=== PATIENT | male | born 1955 | race Caucasian/White ===

== ENCOUNTER 2019-03-31 09:26 | Emergency (ER) | payer MEDICARE, OTHER, SELFPAY ==
[2019-03-31 09:30] VITALS: BP 148/91; PULSE 60; RESP 18; TEMP 36.4; O2SAT 95; BMI 29.1
--- NOTE | 2019-03-31 09:31 | ED_ITS ---
Entered by Martha Dubois, acting as scribe for Elina Chatman MD Mar 31, 2019 09:26 HPI - Abdominal Pain General: Chief Complaint: Abdominal Pain Stated Complaint: Abd pain Time Seen by Provider: 03/31/19 09:32 Source: patient Mode of arrival: ambulatory Limitations: no limitations History of Present Illness: HPI narrative: 63 yo male presents with abdomen pain. pt states he was building his home when he felt a sudden pain in his abdomen. pt feels it could be gas but no relief at this time. pt denies any other symptoms at this time. MD elicited complaint: abdominal pain Onset (ago): hour(s) (1 hour ago) Pain Consistency: constant Location: Epigastric Severity: moderate Quality: cramping Radiation: none Migration to: no migration Exacerbating factors: movement Relieving factors: nothing Associated Symptoms: Denies chills, dysuria, fever(s), nausea and vomiting Review of Systems Const: Denies: fever, chills, body aches or change in appetite Eyes: Denies: blurry vision or eye discomfort ENMT: Denies: throat pain or dental pain Card: Denies: chest pain Resp: Denies: shortness of breath GI: Reports: abdominal pain; Denies: nausea or vomiting : Denies: painful urination Musc: Denies: neck pain or back pain Skin/Breast: Denies: rash Neuro: Denies: headache Psych: Denies: depression James/Lymph: Denies: easy bruising All/Imm: Denies: hives PFSH ED PFSH: Statuses (acute, chronic, etc) shown below reflect problem list status as previously entered and may not be historically accurate Social History Smoking and tobacco status: never smoked Physical Exam Const: COMMON NORMALS: no apparent distress, oriented x3 and healthy appearing HENMT: COMMON NORMALS: normocephalic and head/scalp atraumatic HEAD & SCALP: normocephalic and atraumatic Eye: COMMON NORMALS: PERRL and EOMs intact bilaterally PUPIL: Yes PERRL Neck/C-Spine: COMMON NORMALS: full ROM and supple Chest: COMMONS NORMALS: inspection of chest normal and palpation of chest normal Resp: COMMON NORMALS: normal respiratory effort, no retractions, no use of acc essory muscles and clear to auscultation bilaterally AUSCULTATION: clear to auscultation bilaterally Cardio: COMMON NORMALS: regular rate, regular rhythm and no murmurs RATE: regular rate RHYTHM: regular rhythm GI: OTHER: epigasric tenderness, no rebound Extremity: COMMON NORMALS: normal to inspection and full ROM Neuro: COMMON NORMALS: oriented x3, moves all extremities and no focal motor deficits Psych: COMMON NORMALS: mental status grossly normal, thought process normal and cooperative THOUGHT PROCESS: normal thought process Skin: COMMON NORMALS: no rashes or lesions noted and no wounds GENERAL SKIN EXAM: no rashes or lesions noted Course Vital Signs: Vital signs: Vital Signs Temperature 97.6 F 03/31/19 09:30 Pulse Rate 73 03/31/19 13:40 Respiratory Rate 16 03/31/19 13:40 Blood Pressure 168/100 03/31/19 13:40 Pulse Oximetry 97 03/31/19 13:40 MDM - Abdominal Pain MDM Narrative: Medical decision making narrative: Patient presents with abdominal pain. His pain since resolved. CT and ultrasound showed possible findings of gallbladder disease. He has no tenderness over his gallbladder here and his white count is normal. He has no signs acute cholecystitis we will set him up with a surgeon appointment next week he is return if his pain worsens or he has a fever. We will place him on Keflex along with pain medication. Lab Data: Labs: Lab Results 03/31/19 03/31/19 03/31/19 Range/Units 09:38 09:38 11:13 WBC 7.6 (4.0-10.0) 10^3/ uL RBC 5.02 (4.1-5.3) 10^6/u L Hgb 14.9 (11.7-16.6) g/dL Hct 44.2 (42.0-52.0) % MCV 88.0 (80-94) fL MCH 29.7 (28.0-34.0) pg MCHC 33.7 (30.0-36.0) g/dL RDW 12.4 (12.1-15.1) % Plt Count 182 (130-400) 10^3/c mm MPV 11.5 H (7.4-10.4) fL Neut % (Auto) 55.9 % Lymph % (Auto) 35.1 % [place] % (Auto) 6.1 % Eos % (Auto) 2.1 % Baso % (Auto) 0.5 % Neut # (Auto) 4.2 (1.8-7.7) 10^3/u L Lymph # (Auto) 2.7 (0.8-4.8) 10^3/u L [place] # (Auto) 0.5 (0.2-0.9) 10^3/u L Eos # (Auto) 0.2 (0.0-0.8) 10^3/u L Baso # (Auto) 0.0 (0.0-0.1) 10^3/u L Nucleated RBC % (a uto) 0 % Nucleated RBCs # 0.0 /100WBC Sodium 139 (136-145) mmol/L Potassium 3.9 (3.5-5.1) mmol/L Chloride 102 (98-107) mmol/L Carbon Dioxide 26 (22-29) mmol/L Anion Gap 14.9 (5-19) BUN 14 (8-23) mg/dL Creatinine 1.1 (0.7-1.2) mg/dL GFR Calculation 68.1 L (90-130) mL/min Glucose 144 H (74-106) mg/dL Calcium 9.7 (8.5-10.5) mg/dL Total Bilirubin 1.4 H (0.15-1.2) mg/dL AST 29 (0-40) U/L ALT 10 (0-41) U/L Alkaline Phosphata se 112 (40-130) IU/L Total Protein 7.2 (6.6-8.7) g/dL Albumin 4.3 (3.5-5.2) g/dL Globulin 2.9 (1.3-4.6) g/dL Lipase 17 (13-60) U/L Urine Color Straw (Yellow) Urine Appearance Clear (CLEAR) Urine pH 6.5 (5-7) Ur Specific Gravit y 1.015 (1.005-1.030) Urine Protein Neg (Negative) Urine Glucose (UA) Norm (Normal) Urine Ketones 1+ H (Negative) Urine Occult Blood Neg (Negative) Urine Nitrate Negative (Negative) Urine Bilirubin Neg (NEGATIVE) Urine Urobilinogen 1 H (Negative) mg/dL Ur Leukocyte Lizbeth ase Negative (Negative) Imaging Data ^: CT Abd/Pel: Radiologist's impression: CT Scan Report Signed Patient: Garo Arzate Unit #: [id number] : 1955 Age/Sex: 63 / M ADM Date: 03/31/19 Loc: ER Room/Bed: Attending Dr: Ordering Provider/Ordering MD: Elina Chatman MD Date of Service: 03/31/19 Procedure(s): CT abdomen pelvis w con* [id number] Accession Number(s): [id number] Report Number: [id number] PROCEDURE INFORMATION: Exam: CT Abdomen And Pelvis With Contrast Exam date and time: 03/31/2019 12:41 PM Age: 63 years old Clinical indication: Abdominal pain; Prior surgery; Surgery type: Hernia; Patient HX: Sudden onset of epigastric pain; Additional info: Abd pain TECHNIQUE: Imaging protocol: Computed tomography of the abdomen and pelvis with intravenous contrast. Total DLP: 1139.95 mGy-cm Radiation optimization: All CT scans at this facility use at least one of these dose optimization techniques: automated exposure control; mA and/or kV adjustment per patient size (includes targeted exams where dose is matched to clinical indication); or iterative reconstruction. Contrast material: OMNI 300; Contrast volume: 95 ml; Contrast route: 18G; COMPARISON: US gall bladder [id number] 03/31/2019 11:24 AM FINDINGS: Lungs: Subtle nodular density left lower lobe 3 mm X2. Consider followup CT chest. Heart: Borderline cardiomegaly Liver: Normal. No mass. Gallbladder and bile ducts: Distended gallbladder. Question subtle inflammation. Possible gallstones. Correlate with ultrasound regarding possible cholecystitis. Pancreas: Normal. No ductal dilation. Spleen: Normal. No splenomegaly. Adrenals: Normal. No mass. Kidneys and ureters: Numerous renal cysts bilaterally largest on the right of approximately 3 cm. Stomach and bowel: Diverticulosis without evidence of diverticulitis. Moderate amount stool is present throughout the large bowel. Appendix: The appendix is normal. Intraperitoneal space: No free fluid within the pelvis or within the dependent portions of the peritoneum. Vasculature: Unremarkable. No abdominal aortic aneurysm. Lymph nodes: Unremarkable. No enlarged lymph nodes. Bladder: Unremarkable as visualized. Reproductive: Prostatic enlargement. Correlate regarding hyperplasia/hypertrophy versus neoplasia. Bones/joints: Unremarkable. No acute fracture. Pars defect L5 Soft tissues: Unremarkable. CT/CT abdomen pelvis w con* [id number] IMPRESSION: 1. Distended gallbladder. Question subtle inflammation. Possible gallstones. Correlate with ultrasound regarding possible cholecystitis. 2. Prostatic enlargement. Correlate regarding hyperplasia/hypertrophy versus neoplasia. 3. No free fluid within the pelvis or within the dependent portions of the peritoneum. 4. Diverticulosis without evidence of diverticulitis. 5. The appendix is normal. 6. Subtle nodular density left lower lobe 3 mm X2. Consider followup CT chest. Fleischner Society guidelines for pulmonary nodule follow up Low risk patients < or = 4 mm: No follow-up needed. >4 - 6: Follow-up at 12 months. If no change, no further imaging needed. >6 - 8: Initial follow-up CT at 6 -12 months and then at 18 - 24 months if no change. >8: Follow-up CTs at around 3, 9, and 24 months. Dynamic contrast enhanced CT, PET, and/or biopsy. High risk patients < or = 4 mm: Follow-up at 12 months. If no change, no further imaging needed. >4-6: Initial follow-up CT at 6 -12 months and then at 18 - 24 months if no change. >6-8: Initial follow-up CT at 3 - 6 months and then at 9 -12 and 24 months if no change. >8: Follow-up CTs at around 3, 9, and 24 months. Dynamic contrast enhanced CT, PET, and/or biopsy. Note.-Newly detected indeterminate nodule in persons 35 years of age or older. Low risk patients: Minimal or absent history of smoking and of other known risk factors. High risk patients: History of smoking or of other known US: Radiologist's impression: Ordering Provider/Ordering MD: Elina Chatman MD Date of Service: 03/31/19 Procedure(s): US gall bladder [id number] Accession Number(s): [id number] Report Number: [id number] PROCEDURE INFORMATION: Exam: US Abdomen Limited, Right Upper Quadrant Exam date and time: 03/31/2019 10:50 AM Age: 63 years old Clinical indication: Abdominal pain; Additional info: Abd pain TECHNIQUE: Imaging protocol: Real-time ultrasound of the abdomen with image documentation. Examination was focused on the right upper quadrant. COMPARISON: No relevant prior studies available. FINDINGS: Liver: Liver 15 cm Flow within the portal vein is towards the liver- hepatopedal Gallbladder: Gallbladder wall upper limits of normal measuring 3 mm. Consider hepatobiliary imaging. Common bile duct: Common bile duct 4 mm right kidney 13.4 cm. Renal cysts largest of approximately 3.8 cm. Pancreas: Visualized pancreas is unremarkable. Right kidney: See Common Bile Duct Finding. Aorta: Visualized portions of the aorta non-aneurysmal and visualized portions of the inferior vena cava is unremarkable. US/US gall bladder [id number] IMPRESSION: Gallbladder wall upper limits of normal. Consider hepatobiliary imaging regarding cholecystitis. . possible sludge EKG Data ^: EKG 1: Attestation: I personally reviewed and interpreted this EKG as follows: EKG interpretation date: 03/31/19 EKG interpretation time: 09:48 Interpretation: sinus colleen hr [address] or t wave abnormalities qrs 115 qtc 415 Discharge Plan Discharge Patient Disposition: Home, Self-Care Clinical Impression: Abdominal pain Qualifiers: Abdominal location: generalized Qualified Code(s): R10.84 - Generalized abdominal pain Condition: Stable Prescriptions: New Zofran 4 mg tablet 4 mg PO QID PRN (Reason: nausea and vomiting) Qty: 14 RF: 0 [place] 5-325 mg tablet 1 tab PO Q6H PRN (Reason: pain) Qty: 14 RF: 0 Keflex 500 mg capsule 500 mg PO Q6H 7 Days Qty: 28 RF: 0 No Action lisinopril 20 mg tablet 10 mg PO BID RF: 0 tamsulosin 0.4 mg capsule 0.4 mg PO DAILY RF: 0 Discharge Orders: Discharge Order (Routine); Ordered 03/31/19 Ordered By: Elina Chatman Referrals: Bryce Small [Family Provider] - Matthew Hussein MD [Physician] - Discharge Diet: Advance as tolerated Discharge Activity: Resume usual activity Patient Instructions: Abdominal Pain (ED) Discharge Date/Time: 03/31/19 13:41 Coding Level of Care Code ED Chain Machine Operator for Chg Fwd Exam Problem Focused The documentation recorded by the Silvino dawkins Bridget Annette, accurately reflects the service I personally performed and the decisions made by Lurdes ramos Korby, MD Mar 31, 2019 09:26
--- NOTE | 2019-03-31 09:34 | ECG_ITS ---
Measurements Intervals [place] Rate: 54 P: 44 OK: 173 QRS: 22 QRSD: 115 T: 35 QT: 428 QTc: 408 SINUS BRADYCARDIA WITH OCCASIONAL VENTRICULAR PREMATURE COMPLEXES MODERATE INTRAVENTRICULAR CONDUCTION DELAY [110+ ms QRS DURATION] No previous ECG available for comparison Electronically Signed On 03-31-2019 20:25:37 COMBINATION TECHNICIAN by Radha Barnes M.D. [email or web address]
--- NOTE | 2019-03-31 09:39 | PC.NURSE ---
Patient notified of the need for a urine sample at this time, he states he cannot urinate at this time.
[2019-03-31] MEDS: sodium chloride 0.9% 1,000 ML 999 ML IV (09:43)
[2019-03-31] MEDS: ondansetron 2 mg/ML SDV 2 mL 4 MG IVP (09:43)
[2019-03-31 09:45] LABS: Basophils % 0.5 %; Eosinophils # 0.2 10^3/uL (0.0-0.8); Eosinophils % 2.1 %; Hematocrit 44.2 % (42.0-52.0); Hemoglobin 14.9 g/dL (11.7-16.6); Lymphocytes # 2.7 10^3/uL (0.8-4.8); Lymphocytes % 35.1 %; Mean Corpuscular HGB Conc 33.7 g/dL (30.0-36.0); Mean Corpuscular Hemoglobin 29.7 pg (28.0-34.0); Mean Platelet Volume 11.5 fL (7.4-10.4); Monocytes # 0.5 10^3/uL (0.2-0.9); Monocytes % 6.1 %; Neutrophils # 4.2 10^3/uL (1.8-7.7); Neutrophils % 55.9 %; Nucleated Red Blood Cells % 0 %; Platelet Count 182 10^3/cmm (130-400); Red Blood Count 5.02 10^6/uL (4.1-5.3); Red Cell Distribution Width 12.4 % (12.1-15.1); White Blood Count 7.6 10^3/uL (4.0-10.0)
[2019-03-31 10:02] LABS: Alanine Aminotransferase 10 U/L (0-41); Anion Gap 14.9 (5-19); Aspartate Amino Transferase 29 U/L (0-40); Blood Urea Nitrogen 14 mg/dL (8-23); Calcium 9.7 mg/dL (8.5-10.5); Carbon Dioxide 26 mmol/L (22-29); Chloride 102 mmol/L (98-107); Glomerular Filtration Rate 68.1 mL/min (90-130); Glucose 144 mg/dL (74-106); Potassium 3.9 mmol/L (3.5-5.1); Sodium 139 mmol/L (136-145); Total Bilirubin 1.4 mg/dL (0.15-1.2)
[2019-03-31 10:03] LABS: Albumin Level 4.3 g/dL (3.5-5.2); Alkaline Phosphatase 112 IU/L (40-130); Globulin 2.9 g/dL (1.3-4.6); Lipase 17 U/L (13-60); Total Protein 7.2 g/dL (6.6-8.7)
--- NOTE | 2019-03-31 10:20 | USR_ITS ---
PROCEDURE INFORMATION: Exam: US Abdomen Limited, Right Upper Quadrant Exam date and time: 03/31/2019 10:50 AM Age: 63 years old Clinical indication: Abdominal pain; Additional info: Abd pain TECHNIQUE: Imaging protocol: Real-time ultrasound of the abdomen with image documentation. Examination was focused on the right upper quadrant. COMPARISON: No relevant prior studies available. FINDINGS: Liver: Liver 15 cm Flow within the portal vein is towards the liver- hepatopedal Gallbladder: Gallbladder wall upper limits of normal measuring 3 mm. Consider hepatobiliary imaging. Common bile duct: Common bile duct 4 mm right kidney 13.4 cm. Renal cysts largest of approximately 3.8 cm. Pancreas: Visualized pancreas is unremarkable. Right kidney: See Common Bile Duct Finding. Aorta: Visualized portions of the aorta non-aneurysmal and visualized portions of the inferior vena cava is unremarkable. US/US gall bladder [id number] IMPRESSION: Gallbladder wall upper limits of normal. Consider hepatobiliary imaging regarding cholecystitis. . possible sludge.
[2019-03-31] MEDS: morphine 4 mg/mL SDV 1 mL IVP (10:26)
--- NOTE | 2019-03-31 10:28 | XRR_ITS ---
PROCEDURE INFORMATION: Exam: XR Chest, 1 View Exam date and time: 03/31/2019 10:43 AM Age: 63 years old Clinical indication: Chest pain; Additional info: Cp TECHNIQUE: Imaging protocol: XR of the chest Views: 1 view. COMPARISON: No relevant prior studies available. FINDINGS: Lungs: Lungs are well aerated without a focal area of consolidation. Pleural space: Unremarkable. No pleural effusion. No pneumothorax. Heart/Mediastinum: The cardiac silhouette appears enlarged, some of which is magnification related to the AP projection. Bones/joints: Unremarkable. XR/XR chest 1V portable [id number] IMPRESSION: Lungs are well aerated without a focal area of consolidation.
[2019-03-31 11:21] LABS: Add Urine Microscopic? NO
[2019-03-31 11:41] LABS: Bilirubin Urine Neg (NEGATIVE); Blood Urine Neg (Negative); Glucose Urine UA Norm (Normal); Ketones Urine 1+ (Negative); Nitrate Urine Negative (Negative); Protein Urine Neg (Negative); Specific Gravity, Urine 1.015 (1.005-1.030); Urine Appearance Clear (CLEAR); Urine Color Straw (Yellow); pH Urine 6.5 (5-7)
[2019-03-31 11:42] LABS: Leukocyte Esterase Urine Negative (Negative); Urobilinogen Urine 1 mg/dL (Negative)
--- NOTE | 2019-03-31 12:14 | CTR_ITS ---
PROCEDURE INFORMATION: Exam: CT Abdomen And Pelvis With Contrast Exam date and time: 03/31/2019 12:41 PM Age: 63 years old Clinical indication: Abdominal pain; Prior surgery; Surgery type: Hernia; Patient HX: Sudden onset of epigastric pain; Additional info: Abd pain TECHNIQUE: Imaging protocol: Computed tomography of the abdomen and pelvis with intravenous contrast. Total DLP: 1139.95 mGy-cm Radiation optimization: All CT scans at this facility use at least one of these dose optimization techniques: automated exposure control; mA and/or kV adjustment per patient size (includes targeted exams where dose is matched to clinical indication); or iterative reconstruction. Contrast material: OMNI 300; Contrast volume: 95 ml; Contrast route: 18G; COMPARISON: US gall bladder [id number] 03/31/2019 11:24 AM FINDINGS: Lungs: Subtle nodular density left lower lobe 3 mm X2. Consider followup CT chest. Heart: Borderline cardiomegaly Liver: Normal. No mass. Gallbladder and bile ducts: Distended gallbladder. Question subtle inflammation. Possible gallstones. Correlate with ultrasound regarding possible cholecystitis. Pancreas: Normal. No ductal dilation. Spleen: Normal. No splenomegaly. Adrenals: Normal. No mass. Kidneys and ureters: Numerous renal cysts bilaterally largest on the right of approximately 3 cm. Stomach and bowel: Diverticulosis without evidence of diverticulitis. Moderate amount stool is present throughout the large bowel. Appendix: The appendix is normal. Intraperitoneal space: No free fluid within the pelvis or within the dependent portions of the peritoneum. Vasculature: Unremarkable. No abdominal aortic aneurysm. Lymph nodes: Unremarkable. No enlarged lymph nodes. Bladder: Unremarkable as visualized. Reproductive: Prostatic enlargement. Correlate regarding hyperplasia/hypertrophy versus neoplasia. Bones/joints: Unremarkable. No acute fracture. Pars defect L5 Soft tissues: Unremarkable. CT/CT abdomen pelvis w con* [id number] IMPRESSION: 1. Distended gallbladder. Question subtle inflammation. Possible gallstones. Correlate with ultrasound regarding possible cholecystitis. 2. Prostatic enlargement. Correlate regarding hyperplasia/hypertrophy versus neoplasia. 3. No free fluid within the pelvis or within the dependent portions of the peritoneum. 4. Diverticulosis without evidence of diverticulitis. 5. The appendix is normal. 6. Subtle nodular density left lower lobe 3 mm X2. Consider followup CT chest. Fleischner Society guidelines for pulmonary nodule follow up Low risk patients < or = 4 mm: No follow-up needed. >4 - 6: Follow-up at 12 months. If no change, no further imaging needed. >6 - 8: Initial follow-up CT at 6 -12 months and then at 18 - 24 months if no change. >8: Follow-up CTs at around 3, 9, and 24 months. Dynamic contrast enhanced CT, PET, and/or biopsy. High risk patients < or = 4 mm: Follow-up at 12 months. If no change, no further imaging needed. >4-6: Initial follow-up CT at 6 -12 months and then at 18 - 24 months if no change. >6-8: Initial follow-up CT at 3 - 6 months and then at 9 -12 and 24 months if no change. >8: Follow-up CTs at around 3, 9, and 24 months. Dynamic contrast enhanced CT, PET, and/or biopsy. Note.-Newly detected indeterminate nodule in persons 35 years of age or older. Low risk patients: Minimal or absent history of smoking and of other known risk factors. High risk patients: History of smoking or of other known risk factors. Radiation Dose CTDIVOL = (mGy): DLP = 1139.95 (mGy-cm)
[2019-03-31] MEDS: iohexol 300 mg/mL 100 mL Btl IV (12:50)
[2019-03-31 13:40] VITALS: BP 168/100; PULSE 73; RESP 16; O2SAT 97
--- NOTE | 2019-04-02 14:29 | DCPLANNER ---
manager special events had message to schedule a follow up appointment for patient with [facility]. manager special events called the clinic, spoke with Venita, a follow up appointment is scheduled for March with . Clinic will contact patient with appointment information.
--- NOTE | 2019-05-08 15:41 | DCPLANNER ---
Patient did attend appointment scheduled for 04.04.19 with [facility].
== END 2019-03-31 13:41 | disposition home or self-care (01) ==
PROVIDERS: Physician Assistant; Emergency Provider Emergency Medicine; Family Provider Physician Assistant Medical
DX: R10.84 Generalized abdominal pain (principal)
CPT/HCPCS: 36415; 71045; 74177; 76705; 80053; 81003; 83690; 85025; 93005; 96360; 96361; 96374; 96375; 99283; 99284; J2270; J2405; J7030; Q9967

== ENCOUNTER 2019-04-17 07:37 | Outpatient (CLI) | payer MEDICARE, OTHER, SELFPAY ==
--- NOTE | 2019-04-17 08:00 | NM_ITS ---
WS: [id number] NUCLEAR MEDICINE HIDA SCAN CLINICAL INFORMATION: right upper quadrant pain TECHNIQUE: Following intravenous administration of 8.3 mCi of technetium 99m mebrofenin, images of th e abdomen were obtained over the course of 60 minutes. Next, gallbladder ejection fraction was determ ined by obtaining preprandial and one-hour postprandial images of the gallbladder following oral jessica stion of Ensure. COMPARISON: Ultrasound gallbladder 03/31 2019 FINDINGS: Normal hepatic uptake at 5 minutes. Gallbladder is visualized by 10-15 minutes. No evidence of acute cholecystitis. Normal common bile duct and small bowel activity. No evidence of choledocholithiasis. Ejection fraction 96% within normal limits. No evidence of chronic cholecystitis. NM/NM hepatobiliary w phar* [id number] IMPRESSION: 1. No evidence of acute or chronic cholecystitis. 2. Gallbladder ejection fraction 96% within normal limits.
== END 2019-04-17 07:38 | disposition home or self-care (01) ==
PROVIDERS: Family Provider Physician Assistant Medical; PCP Physician Assistant Medical; Visit Provider Surgery
DX: R10.11 Right upper quadrant pain (principal)
CPT/HCPCS: 78227; A9537

== ENCOUNTER → 2020-08-04 08:50 | Outpatient (BNVA) | payer MEDICARE, OTHER, SELFPAY | PROVIDERS: Family Provider Physician Assistant Medical; PCP Physician Assistant Medical; Referring Provider Surgery; Visit Provider Urology | DX: N40.1 Benign prostatic hyperplasia with lower urinary tract symptoms (principal); R39.9 Unspecified symptoms and signs involving the genitourinary system; R35.1 Nocturia; N52.9 Male erectile dysfunction, unspecified | CPT/HCPCS: 81003; 84153 ==

== ENCOUNTER → 2021-09-14 08:49 | Outpatient (BNVA) | payer MEDICARE, OTHER, SELFPAY | PROVIDERS: Family Provider Physician Assistant Medical; PCP Physician Assistant Medical; Visit Provider Surgery | DX: K42.9 Umbilical hernia without obstruction or gangrene (principal); N48.9 Disorder of penis, unspecified | CPT/HCPCS: 99214 ==

== ENCOUNTER 2022-02-02 02:43 | Emergency (ER) | payer MEDICARE, OTHER, SELFPAY ==
[2022-02-02 02:47] VITALS: BP 171/114; PULSE 77; RESP 18; TEMP 36.8; O2SAT 98; BMI 31.1
--- NOTE | 2022-02-02 02:47 | W.ED.ABDPA2 ---
HPI - Abdominal Pain General: Chief Complaint: Urogenital-Male Stated Complaint: cant void Time Seen by Provider: 02/02/22 02:43 Source: patient Mode of arrival: ambulatory Limitations: no limitations History of Present Illness: 66-year-old male states he has not been able to urinate tonight. He states he having some lower abdominal pain is likely his urinate but states he just cannot. Does have a history of BPH he has had a urine retention once before. He states pain is a 4 out of 10 denies any worsening proving factors denies any fever. Associated Symptoms: Denies chills and fever(s) Review of Systems Const: Denies: fever(s), chills, body aches or change in appetite Eyes: Denies: blurry vision or eye discomfort ENMT: Denies: throat pain or dental pain Card: Denies: chest pain Resp: Denies: dyspnea GI: Reports: abdominal pain : Reports: difficulty urinating Musc: Denies: neck pain or back pain Skin/Breast: Denies: rash Neuro: Denies: headache(s) Psych: Denies: depression James/Lymph: Denies: easy bruising All/Imm: Denies: urticaria PFSH ED PFSH: Medical History BPH loc w urin obs/LUTS Erectile dysfunction Hypertension Umbilical hernia Surgical History History of colonoscopy (~2019) normal History of inguinal hernia repair left History of right shoulder replacement Status post left knee replacement Family History Father , at age 87 Hypertension Social History Smoking and tobacco status: never smoked Alcohol intake: never Marital status: Single Current occupational status: retired History of recent travel: No Physical Exam Const: COMMON NORMALS: no acute distress, patient oriented x3 and healthy appearing HENMT: COMMON NORMALS: normocephalic and atraumatic HEAD & SCALP: normocephalic and atraumatic Eye: COMMON NORMALS: conjunctivae normal CONJUNCTIVA: Yes conjunctivae normal Neck/C-Spine: COMMON NORMALS: full ROM and supple Chest: COMMONS NORMALS: normal inspection of the chest Resp: COMMON NORMALS: normal respiratory effort Cardio: COMMON NORMALS: regular rate, regular rhythm and No murmurs present (Cardio) RATE: regular rate RHYTHM: regular rhythm GI: COMMON NORMALS: Normal to inspection, nondistended, normoactive bowel sounds present, Soft to palpation and no masses PALPATION: Yes Soft to palpation OTHER: tenderness over bladder Extremity: COMMON NORMALS: normal to inspection and full ROM Neuro: COMMON NORMALS: patient oriented x3, moves all extremities and no focal motor deficits Psych: COMMON NORMALS: mental status grossly normal, Normal thought process present and cooperative THOUGHT PROCESS: Normal thought process present Skin: COMMON NORMALS: no rashes or lesions noted and no wounds GENERAL SKIN EXAM: no rashes or lesions noted Course Vital Signs: Vital signs: Vital Signs Temperature 98.2 F 02/02/22 02:47 Pulse Rate 77 02/02/22 02:47 Respiratory Rate 18 02/02/22 02:47 Blood Pressure 171/114 02/02/22 02:47 Pulse Oximetry 98 02/02/22 02:47 Oxygen Delivery Me thod 02/02/22 02:47 MDM - Abdominal Pain Medical Decision Making Patient presents here with urinary retention he had roughly a liter out after Barba placement feels much improved no signs of UTI we will leave Barba in with leg bag and have him follow-up with Dr. Baldwin he is return if worsening. Lab Data Labs/Radiology: Laboratory Results Urine Color Yellow (Yellow) 02/02/22 02:51 Urine Appearance Clear (CLEAR) 02/02/22 02:51 Urine pH 5 (5-7) 02/02/22 02:51 Ur Specific [place] 1.015 (1.005-1.030) 02/02/22 02:51 Urine Protein Neg (Negative) 02/02/22 02:51 Urine Glucose (UA) Norm (Normal) 02/02/22 02:51 Urine Ketones Negative (Negative) 02/02/22 02:51 Urine Blood Trace (Negative) H 02/02/22 02:51 Urine Nitrate Negative (Negative) 02/02/22 02:51 Urine Bilirubin Neg (Negative) 02/02/22 02:51 Urine Urobilinogen Norm mg/dL (Negative) 02/02/22 02:51 Ur Leukocyte Esterase Negative (Negative) 02/02/22 02:51 Amorphous Sediment Not Reportable 02/02/22 02:51 Discharge Plan Discharge Patient Disposition: Home Clinical Impression: Urinary retention Condition: Stable Prescriptions: No Action tadalafil 20 mg tablet 20 mg PO DAILY PRN (Reason: sexual activity) Qty: 20 12RF Rx Instructions: administer approximately 30min before sexual activity; NO NITROGLYCERIN! tamsulosin [Flomax] 0.4 mg capsule 0.4 mg PO DAILY Qty: 180 3RF lidocaine (PF) 20 mg/mL (2 %) solution 20 mg SUBCUT ONCE Qty: 1 0RF Discharge Orders: Discharge ED (Routine); Ordered 02/02/22 Ordered By: Elina Chatman Referrals: Bryce Small [Referring] - Marty Baldwin MD [Physician] - 1-3 days Discharge Diet: Advance as tolerated Discharge Activity: Resume usual activity Patient Instructions: Urinary Retention in Men (ED) Coding Level of Care Code ED Cloth Brushing And Sueding Supervisor for Milli Fwd Exam Comprehensive
[2022-02-02 03:24] LABS: Glucose Urine UA Norm (Normal); Ketones Urine Negative (Negative); Protein Urine Neg (Negative); Specific Gravity, Urine 1.015 (1.005-1.030); Urine Appearance Clear (CLEAR); Urine Color Yellow (Yellow); pH Urine 5 (5-7)
[2022-02-02 03:25] LABS: Add Urine Microscopic? YES; Bilirubin Urine Neg (Negative); Blood Urine Trace (Negative); Leukocyte Esterase Urine Negative (Negative); Nitrate Urine Negative (Negative); Urobilinogen Urine Norm (Negative)
[2022-02-02 04:12] LABS: Add Urine Culture? No; RBC Urine 0-4 /hpf (0-2); Squamous Epithelial Cell Urine 0-4 /hpf (0-5)
--- NOTE | 2022-02-02 12:55 | DCPLANNER ---
Addendum entered by Kym James 02/16/22 12:04: Patient had a follow up appointment scheduled with urology - patient did attend appointment Addendum entered by Kym James 02/03/22 12:15: Patient has a follow up appointment scheduled for Wednesday, February 09, 2022 at 4:[address] Baldwin at urology. Clinic will call patient with appointment information. Original Note: senior contracts manager had message to schedule a follow up appointment for patient with urology. senior contracts manager sent patients information to the front office staff at urology. Patients information will be printed and reviewed. Clinic will call patient with appointment information.
== END 2022-02-02 03:52 | disposition home or self-care (01) ==
PROVIDERS: Emergency Provider Emergency Medicine; PCP Orthopaedic Surgery
DX: N40.0 Benign prostatic hyperplasia without lower urinary tract symptoms (principal); I10 Essential (primary) hypertension
CPT/HCPCS: 51702; 81001; 99283

== ENCOUNTER → 2022-02-09 15:26 | Outpatient (BNVA) | payer MEDICARE, OTHER, SELFPAY | PROVIDERS: PCP Orthopaedic Surgery; Visit Provider Urology | DX: N52.9 Male erectile dysfunction, unspecified (principal); R31.0 Gross hematuria; R33.9 Retention of urine, unspecified; N40.1 Benign prostatic hyperplasia with lower urinary tract symptoms; R35.1 Nocturia | CPT/HCPCS: 52000; 99213 ==

== ENCOUNTER → 2022-05-12 15:11 | Outpatient (BNVA) | payer MEDICARE, SELFPAY | PROVIDERS: PCP Orthopaedic Surgery; Visit Provider Urology | DX: N40.1 Benign prostatic hyperplasia with lower urinary tract symptoms (principal); N13.8 Other obstructive and reflux uropathy; N52.9 Male erectile dysfunction, unspecified; Z12.5 Encounter for screening for malignant neoplasm of prostate; R35.1 Nocturia | CPT/HCPCS: 51798; 87086; 99213 ==

== ENCOUNTER 2022-06-05 00:41 | Emergency (ER) | payer MEDICARE, SELFPAY ==
[2022-06-05 00:57] VITALS: BP 149/97; PULSE 63; RESP 18; TEMP 36.5; O2SAT 96; BMI 29.8
--- NOTE | 2022-06-05 00:57 | W.ED.ABDPA2 ---
HPI - Abdominal Pain General: Chief Complaint: Abdominal Pain Stated Complaint: upper abd pain Time Seen by Provider: 06/05/22 00:57 History of Present Illness: 66-year-old male patient comes in today with complaints of epigastric pain. Patient reports pain started about 830 this evening. Patient takes tamsulosin routinely for BPH. Patient denies any other routine medications. Patient appears nontoxic. Patient appears in moderate pain. Patient reported it felt like gas. Review of the record notes that in March 2019 patient was seen in the ER at that time for abdominal pain and was worked up further for gallbladder disease. No significant abnormality was noted of the gallbladder at that time. Associated Symptoms: Reports chills and nausea; Denies constipation, diarrhea, fever(s) and vomiting Review of Systems General: Reports: 10 or more systems reviewed and unremarkable except in HPI and below Const: Reports: chills; Denies: fever(s) Card: Denies: chest pain Resp: Denies: dyspnea GI: Reports: abdominal pain and nausea; Denies: vomiting, diarrhea or constipation PFSH ED PFSH: Medical History BPH loc w urin obs/LUTS Erectile dysfunction Hypertension Umbilical hernia Surgical History History of colonoscopy (~2018) normal History of inguinal hernia repair left History of right shoulder replacement Status post left knee replacement Family History Father , at age 87 Hypertension Social History Smoking and tobacco status: never smoked Alcohol intake: never Marital status: Single Current occupational status: retired Physical Exam Const: COMMON NORMALS: alert HENMT: COMMON NORMALS: normocephalic HEAD & SCALP: normocephalic Neck/C-Spine: COMMON NORMALS: full ROM Resp: COMMON NORMALS: normal respiratory effort and clear to auscultation bilaterally AUSCULTATION: clear to auscultation bilaterally Cardio: COMMON NORMALS: regular rate and regular rhythm RATE: regular rate RHYTHM: regular rhythm GI: COMMON NORMALS: Soft to palpation AUSCULTATION: Yes Hypoactive bowel sounds present PALPATION: Yes Soft to palpation and Yes Tenderness to palpation present (GI) (Midepigastric) : COMMON NORMALS: Yes no CVA tenderness BLADDER/KIDNEY EXAM: Yes no CVA tenderness Back/Pelvis: COMMON NORMALS: no CVA tenderness Extremity: COMMON NORMALS: no pedal edema Neuro: SENSORIUM/ORIENTATION: Yes alert Skin: COMMON NORMALS: turgor normal GENERAL SKIN EXAM: turgor normal Course ED course: 0153, patient reports improvement in pain after medication for pain and nausea delivered. Patient was given 4 mg of morphine, 4 mg of Zofran, and a GI cocktail. Laboratory values noted elevation and ALT and AST. Lipase and bilirubin was normal. Remainder of labs are unremarkable. Awaiting urinalysis. Ultrasound for gallbladder was ordered. Vital Signs: Vital signs: Vital Signs Temperature 97.7 F 06/05/22 03:00 Pulse Rate 63 06/05/22 03:00 Respiratory Rate 16 06/05/22 03:00 Blood Pressure 149/97 06/05/22 03:00 Pulse Oximetry 100 06/05/22 03:00 MDM - Abdominal Pain Medical Decision Making Patient came in tonight after eating some ice cream around 8:00 and started having pain in the epigastric region at about 830. Patient attempted using Tums with no relief. On exam patient appears in moderate pain. Respirations were even lungs were clear to auscultation. Skin was warm and dry. Vital signs were normal. Abdomen was soft with midepigastric tenderness. Differential diagnosis includes but not limited to cholecystitis, cholelithiasis, gastritis, pancreatitis. Laboratory values noted a slight increase in ALT and AST's. The remainder of labs were unremarkable. Ultrasound noted some possible sludge, but no signs of inflammation or obstruction. Patient was medicated with 4 mg of morphine, 4 mg of Zofran, and a GI cocktail along with 40 mg of famotidine. Patient had full relief of pain and discomfort. I believe patient probably has some gallbladder disease but at this time no signs of infection or obstruction was noted. Recommend follow-up with surgeon for further evaluation and consideration of removal of gallbladder. Reviewed this with patient who agreed to plan and need to return for worsening symptoms. Lab Data 06/05/22 01:13 06/05/22 01:13 Labs/Radiology: Radiology Impressions Gallbladder Ultrasound 06/05/22 01:49 IMPRESSION: Negative for acute pathology. Laboratory Results WBC 9.3 10^3/uL (4.0-10.0) 06/05/22 01:13 RBC 4.97 10^6/uL (4.1-5.3) 06/05/22 01:13 Hgb 15.0 g/dL (11.7-16.6) 06/05/22 01:13 Hct 44.1 % (42.0-52.0) 06/05/22 01:13 MCV 88.7 fl (80-94) 06/05/22 01:13 MCH 30.2 pg (28.0-34.0) 06/05/22 01:13 MCHC 34.0 g/dL (30.0-36.0) 06/05/22 01:13 RDW 12.8 % (12.1-15.1) 06/05/22 01:13 Plt Count 178 10^3/cmm (130-400) 06/05/22 01:13 MPV 11.2 fL (7.4-10.4) H 06/05/22 01:13 Neut % (Auto) 72.9 % 06/05/22 01:13 Lymph % (Auto) 19.7 % 06/05/22 01:13 Anderson % (Auto) 5.2 % 06/05/22 01:13 Eos % (Auto) 1.6 % 06/05/22 01:13 Baso % (Auto) 0.2 % 06/05/22 01:13 Neut # (Auto) 6.74 10^3/uL (1.8-7.7) 06/05/22 01:13 Lymph # (Auto) 1.8 10^3/uL (0.8-4.8) 06/05/22 01:13 Anderson # (Auto) 0.5 10^3/uL (0.2-0.9) 06/05/22 01:13 Eos # (Auto) 0.2 10^3/uL (0.0-0.8) 06/05/22 01:13 Baso # (Auto) 0.0 10^3/uL (0.0-0.1) 06/05/22 01:13 Nucleated RBC % (auto) 0 % 06/05/22 01:13 Nucleated RBCs # 0.0 /100WBC 06/05/22 01:13 Sodium 134 mmol/L (136-145) L 06/05/22 01:13 Potassium 4.0 mmol/L (3.5-5.1) 06/05/22 01:13 Chloride 99 mmol/L (98-107) 06/05/22 01:13 Carbon Dioxide 25 mmol/L (22-29) 06/05/22 01:13 Anion Gap 14.0 (5-19) 06/05/22 01:13 BUN 16 mg/dL (8-23) 06/05/22 01:13 Creatinine 1.0 mg/dL (0.7-1.2) 06/05/22 01:13 GFR Calculation 75.2 mL/min (90-130) L 06/05/22 01:13 Glucose 153 mg/dL (65-115) H 06/05/22 01:13 Calculated Osmolality 282 mOsm/kg (285-295) L 06/05/22 01:13 Calcium 8.9 mg/dL (8.5-10.5) 06/05/22 01:13 Total Bilirubin 1.1 mg/dL (0.15-1.2) 06/05/22 01:13 AST 110 U/L (0-40) H 06/05/22 01:13 ALT 63 U/L (0-41) H 06/05/22 01:13 Alkaline Phosphatase 130 U/L (40-130) 06/05/22 01:13 Troponin T Gen 5 ng/L 7 ng/L (0-15) 06/05/22 01:13 Total Protein 6.6 g/dL (6.6-8.7) 06/05/22 01:13 Albumin 4.0 g/dL (3.5-5.2) 06/05/22 01:13 Globulin 2.6 g/dL (1.3-4.6) 06/05/22 01:13 Lipase 31 U/L (13-60) 06/05/22 01:13 Urine Color Yellow (Yellow) 06/05/22 02:25 Urine Appearance Sl hazy (CLEAR) A 06/05/22 02:25 Urine pH 7 (5-7) 06/05/22 02:25 Ur Specific Tyler 1.020 (1.005-1.030) 06/05/22 02:25 Urine Protein Neg (Negative) 06/05/22 02:25 Urine Glucose (UA) Norm (Normal) 06/05/22 02:25 Urine Ketones Negative (Negative) 06/05/22 02:25 Urine Blood Neg (Negative) 06/05/22 02:25 Urine Nitrate Negative (Negative) 06/05/22 02:25 Urine Bilirubin Neg (Negative) 06/05/22 02:25 Urine Urobilinogen 1 mg/dL (Negative) H 06/05/22 02:25 Ur Leukocyte Esterase Negative (Negative) 06/05/22 02:25 EKG Data EKG 1: EKG interpretation date: 06/05/22 EKG interpretation time: 01:08 Prior EKG tracings: not available for review Interpretation: EKG shows a sinus rhythm with a regular rate of [address] elevation is noted. No ectopy is noted. No prior exam was available for comparison. Discharge Plan Discharge Patient Disposition: Home Clinical Impression: Gallbladder colic Condition: Stable Prescriptions: New dicyclomine 20 mg tablet 20 mg PO TID PRN (Reason: abd cramping) Qty: 15 0RF ondansetron 4 mg tablet,disintegrating 4 mg PO Q8H PRN (Reason: nausea and vomiting) Qty: 10 0RF hydrocodone-acetaminophen 5-325 mg tablet 1 tab PO Q8H PRN (Reason: pain (scale score 7-10)) Qty: 10 0RF No Action lisinopril 20 mg tablet 20 mg PO DAILY tadalafil 20 mg tablet 20 mg PO DAILY PRN (Reason: sexual activity) Qty: 20 12RF Rx Instructions: administer approximately 30min before sexual activity; NO NITROGLYCERIN! tamsulosin [Flomax] 0.4 mg capsule 0.8 mg PO DAILY Qty: 180 3RF finasteride 5 mg tablet 5 mg PO QDAY Qty: 90 3RF lidocaine (PF) 20 mg/mL (2 %) solution 20 mg SUBCUT ONCE Qty: 1 0RF Discharge Orders: Discharge ED (Routine); Ordered 06/05/22 Ordered By: Kanu Victor Referrals: Larry Ward DO [Primary Care Provider] - Discharge Diet: Usual diet Patient Instructions: Biliary Colic (ED) Activity Restrictions/Additional Instructions: Home and rest. Eat a light diet. Drink lots of fluids. Follow-up with surgeon for further evaluation and treatment and consideration of removal of gallbladder. Use medication as directed for pain and discomfort. Follow-up with primary care as needed. Return to ER for high fever, inability to hold fluids down, blood in vomit or stool. Coding Level of Care Code ED Director Of Ancillary Services for Milli Carvajal
--- NOTE | 2022-06-05 01:03 | ECG_ITS ---
[facility] Test Date: 2022-06-05 Pat Name: Garo Arzate Department: Room: Gender: Male Weight Calculator: : 1955 Requested By: Kanu Rush Order Number: [id number] Jose MD: Radha Barnes M.D. Measurements Intervals [place] Rate: 63 P: 41 [place]: 199 QRS: 31 QRSD: 118 T: 43 QT: 412 QTc: 423 Interpretive Statements SINUS RHYTHM INCOMPLETE RIGHT BUNDLE BRANCH BLOCK [90+ ms QRS DURATION, TERMINAL R IN V1/V2, 40+ ms S IN I/aVL/V4/V5/V6] Compared to ECG 03/31/2019 09:48:35 Incomplete right bundle-branch block now present Sinus bradycardia no longer present Ventricular premature complex(es) no longer present Intraventricular conduction delay no longer present Electronically Signed On 06-05-2022 21:59:22 CDT by Radha Barnes M.D. [email or web address]
[2022-06-05 01:25] LABS: Basophils % 0.2 %; Eosinophils # 0.2 10^3/uL (0.0-0.8); Eosinophils % 1.6 %; Hematocrit 44.1 % (42.0-52.0); Lymphocytes # 1.8 10^3/uL (0.8-4.8); Lymphocytes % 19.7 %; Mean Corpuscular Hemoglobin 30.2 pg (28.0-34.0); Mean Corpuscular Volume 88.7 fl (80-94); Mean Platelet Volume 11.2 fL (7.4-10.4); Monocytes # 0.5 10^3/uL (0.2-0.9); Monocytes % 5.2 %; Neutrophils # 6.74 10^3/uL (1.8-7.7); Neutrophils % 72.9 %; Nucleated Red Blood Cells % 0 %; Platelet Count 178 10^3/cmm (130-400); Red Blood Count 4.97 10^6/uL (4.1-5.3); Red Cell Distribution Width 12.8 % (12.1-15.1); White Blood Count 9.3 10^3/uL (4.0-10.0)
[2022-06-05] MEDS: ondansetron 2 mg/ML SDV 2 mL 4 MG IVP (01:27)
[2022-06-05 01:28] VITALS: RESP 16; O2SAT 100
[2022-06-05] MEDS: morphine 4 mg/mL SDV 1 mL IVP (01:28)
[2022-06-05] MEDS: famotidine 20 mg/2 mL INJ 40 MG IVP (01:28)
[2022-06-05] MEDS: sodium chloride 0.9% 500 ML 999 ML IV (01:29)
[2022-06-05] MEDS: lidocaine 2% viscous 15 ML, aluminum-mag hydrox-simethicon 30 ML, sucralfate oral liq 1 GM PO (01:38)
[2022-06-05 01:42] LABS: Alanine Aminotransferase 63 U/L (0-41); Alkaline Phosphatase 130 U/L (40-130); Aspartate Amino Transferase 110 U/L (0-40); Blood Urea Nitrogen 16 mg/dL (8-23); Calcium 8.9 mg/dL (8.5-10.5); Carbon Dioxide 25 mmol/L (22-29); Chloride 99 mmol/L (98-107); Globulin 2.6 g/dL (1.3-4.6); Glomerular Filtration Rate 75.2 mL/min (90-130); Glucose 153 mg/dL (65-115); Lipase 31 U/L (13-60); Osmolality Calculated 282 mOsm/kg (285-295); Sodium 134 mmol/L (136-145); Total Bilirubin 1.1 mg/dL (0.15-1.2); Total Protein 6.6 g/dL (6.6-8.7)
[2022-06-05 01:48] LABS: Troponin T (5th) Once 7 ng/L (0-15)
--- NOTE | 2022-06-05 01:49 | USR_ITS ---
PROCEDURE INFORMATION: Exam: US Abdomen, Limited; Right Upper Quadrant Exam date and time: 06/05/2022 1:56 AM Age: 66 years old Clinical indication: Abdominal pain; Epigastric; Additional info: Epigastric pain TECHNIQUE: Imaging protocol: Real time ultrasound of the abdomen with image documentation. Limited exam focused on the right upper quadrant. COMPARISON: US gall bladder [id number] 03/31/2019 11:24 AM FINDINGS: Liver: Normal. No masses. Patent main portal vein with normal direction of flow. Gallbladder: Normal. No gallstones. There is no gallbladder wall thickening. Biliary ducts: Normal. No stones. No dilation. Pancreas: Sonographically unremarkable. Right kidney: Right renal length 14.3 cm. Negative for hydronephrosis. Negative for perinephric fluid. Multiple simple cortical cysts, largest 4 cm diameter. US/US gall bladder [id number] IMPRESSION: Negative for acute pathology.
[2022-06-05 02:43] LABS: Add Urine Microscopic? NO; Charge for UA Resulting for Rev
[2022-06-05 03:00] VITALS: BP 149/97; PULSE 63; RESP 16; TEMP 36.5; O2SAT 100
[2022-06-05 03:03] LABS: Urine Appearance SL Hazy (CLEAR); Urine Color Yellow (Yellow); pH Urine 7 (5-7)
[2022-06-05 03:04] LABS: Bilirubin Urine Neg (Negative); Blood Urine Neg (Negative); Glucose Urine UA Norm (Normal); Ketones Urine Negative (Negative); Leukocyte Esterase Urine Negative (Negative); Nitrate Urine Negative (Negative); Protein Urine Neg (Negative); Urobilinogen Urine 1 mg/dL (Negative)
--- NOTE | 2022-06-06 13:55 | DCPLANNER ---
Addendum entered by Kym James 06/08/22 09:46: tooling manager called to confirm that [facility] received patients information - family preservation caseworker was told that patient did receive patients information. Addendum entered by Kym James 06/07/22 10:25: tooling manager received the following message from the general surgery clinic regarding follow up appointment: Due to patient having [facility], please refer elsewhere. family preservation caseworker spoke with patient, he stated that he would like his information sent to [facility]. tooling manager faxed patients information the [facility] General Surgery, it will be reviewed. Clinic will call patient with appointment information. Original Note: tooling manager had message to schedule a follow up appointment for patient with general surgery. tooling manager sent patients information to the front office staff at general surgery. Patients information will be printed and reviewed. Clinic will call patient with appointment information.
== END 2022-06-05 03:02 | disposition home or self-care (01) ==
PROVIDERS: Emergency Provider Nurse Practitioner Family; PCP Orthopaedic Surgery
DX: K80.20 Calculus of gallbladder without cholecystitis without obstruction (principal); I10 Essential (primary) hypertension
CPT/HCPCS: 76705; 80053; 81003; 83690; 84484; 85025; 93005; 96374; 96375; 99285; J2270; J2405; J3490; J7040

== ENCOUNTER → 2022-11-16 09:58 | Outpatient (BNVA) | payer MEDICARE, SELFPAY | PROVIDERS: PCP Orthopaedic Surgery; Visit Provider Family Medicine | DX: R31.0 Gross hematuria (principal); N52.9 Male erectile dysfunction, unspecified; N40.1 Benign prostatic hyperplasia with lower urinary tract symptoms; R35.1 Nocturia; Z12.5 Encounter for screening for malignant neoplasm of prostate | CPT/HCPCS: 80053; 80061; 85025; G0103 ==

== ENCOUNTER → 2023-10-31 17:26 | Outpatient (BNVA) | payer OTHER, SELFPAY | PROVIDERS: PCP Family Medicine; Visit Provider Registered Nurse Neonatal Intensive Care | DX: S81.021A Laceration with foreign body, right knee, initial encounter (principal); X58.XXXA Exposure to other specified factors, initial encounter | CPT/HCPCS: 73562 ==

== ENCOUNTER → 2024-10-17 15:09 | Outpatient (BNVA) | payer MEDICARE, SELFPAY | PROVIDERS: PCP Family Medicine; Visit Provider Family Medicine | DX: I10 Essential (primary) hypertension (principal) | CPT/HCPCS: 80053; 80061; 84443; 85025 ==